=== PATIENT | female | born 1980 | race Caucasian/White ===

== ENCOUNTER 2016-11-21 15:07 | Inpatient (IN) | payer BC ==
[~2016-11-21] VITALS: Ht 167.6 cm; Wt 68.0 kg
[~2016-11-21 15:07] MED LIST: FISH OIL500 MG PO; IBUPROFEN800 MG PO; MOTRIN800 MG PO; PERCOCET 5/31 TABLET PO; VITAFOL GUMMIE1 EACH PO
[2016-11-21 15:21] VITALS: BP 118/65
[2016-11-21 18:28] VITALS: BP 113/60
[2016-11-21 19:22] VITALS: BP 109/62
[2016-11-22 07:34] VITALS: BP 98/54
[2016-11-22 11:54] LABS: EOSINOPHIL (%) 0 % (0-5); HEMATOCRIT 29.6 % (36.0-46.0); IMMATURE GRANULOCYTE (%) 0.7 % (0.0-0.7); IMMATURE GRANULOCYTE COUNT 0.1 K/uL; INSTRUMENT ABS NEUTROPHIL CT 10.3 K/uL; LYMPHOCYTE COUNT 1.1 K/uL (1.0-2.8); MCH 29.7 PG (29.0-34.0); MCHC 33.8 G/DL (30.0-36.0); MCV 87.8 FL (83-99); MEAN PLAT.VOLUME 11.1 uM^3 (9.5-12.4); MONOCYTE (%) 5.7 % (3-12); MONOCYTE COUNT 0.7 K/uL (0-0.8); NEUTROPHIL (%) 84.2 % (45-76); NEUTROPHIL COUNT 10.3 K/uL (1.8-6.4); PLATELET COUNT 175 K/uL (156-360); RBC DIS.WIDTH-CV 12.9 % (11.8-14.6); RBC DIS.WIDTH-SD 41.3 % (39-53); RED BLOOD COUNT 3.37 M/uL (3.80-5.20); WHITE BLOOD COUNT 12.2 K/uL (4.1-10.2)
[2016-11-22 12:29] LABS: GFR ESTIMATE (CALCULATED) > 59 mL/min/
[2016-11-22 15:10] VITALS: BP 96/55
[2016-11-22 19:58] VITALS: BP 100/59
[2016-11-22 23:30] VITALS: BP 84/49
[2016-11-22 23:31] VITALS: BP 96/53
[2016-11-23] VITALS (10 sets, daily range): BP systolic 99–115; BP diastolic 56–63
[2016-11-23 08:09] LABS: EOSINOPHIL (%) 0 % (0-5); HEMATOCRIT 27.5 % (36.0-46.0); IMMATURE GRANULOCYTE (%) 1.3 % (0.0-0.7); IMMATURE GRANULOCYTE COUNT 0.2 K/uL; MCH 29.9 PG (29.0-34.0); MCHC 33.8 G/DL (30.0-36.0); MCV 88.4 FL (83-99); MEAN PLAT.VOLUME 10.8 uM^3 (9.5-12.4); MONOCYTE (%) 4.8 % (3-12); MONOCYTE COUNT 0.6 K/uL (0-0.8); NEUTROPHIL (%) 85.3 % (45-76); PLATELET COUNT 144 K/uL (156-360); RBC DIS.WIDTH-SD 41.7 % (39-53); RED BLOOD COUNT 3.11 M/uL (3.80-5.20); WHITE BLOOD COUNT 11.7 K/uL (4.1-10.2)
[2016-11-23] MEDS ORDERED: ENDOCET 5-3251 EACH PO (11:33)
[2016-11-23] MEDS ORDERED: IBUPROFEN800 MG PO (11:33)
[2016-11-24 02:04] VITALS: BP 94/54
[2016-11-24 06:39] LABS: EOSINOPHIL (%) 0.1 % (0-5); HEMATOCRIT 22.7 % (36.0-46.0); IMMATURE GRANULOCYTE (%) 1.2 % (0.0-0.7); IMMATURE GRANULOCYTE COUNT 0.1 K/uL; INSTRUMENT ABS NEUTROPHIL CT 9.5 K/uL; LYMPHOCYTE COUNT 1.3 K/uL (1.0-2.8); MCH 29.3 PG (29.0-34.0); MCV 88.7 FL (83-99); MEAN PLAT.VOLUME 10.7 uM^3 (9.5-12.4); MONOCYTE (%) 7.1 % (3-12); MONOCYTE COUNT 0.8 K/uL (0-0.8); NEUTROPHIL (%) 80.5 % (45-76); NEUTROPHIL COUNT 9.5 K/uL (1.8-6.4); PLATELET COUNT 174 K/uL (156-360); RBC DIS.WIDTH-CV 12.9 % (11.8-14.6); RBC DIS.WIDTH-SD 42.1 % (39-53); RED BLOOD COUNT 2.56 M/uL (3.80-5.20); WHITE BLOOD COUNT 11.8 K/uL (4.1-10.2)
[2016-11-24 11:00] VITALS: BP 108/65
[2016-11-24 14:30] VITALS: BP 112/67
[2016-11-24 19:07] VITALS: BP 109/59
[2016-11-24 23:20] VITALS: BP 108/64
[2016-11-25 03:14] VITALS: BP 119/69
[2016-11-25 07:26] VITALS: BP 117/68
[2016-11-25] MEDS ORDERED: HYDROCODON-ACE1 EAC7 PO (08:16)
[2016-11-25] MEDS ORDERED: IRON325 MG PO (08:16)
[2016-11-25 14:24] VITALS: BP 117/67
[2016-11-25 23:11] VITALS: BP 116/68
[2016-11-26 07:57] VITALS: BP 120/66
== END 2016-11-26 11:39 | disposition home or self-care (01) | DRG 765 ==
LOC: LDRP-OP 15:07 → 2WEST 15:08 → LDRP-OP 01-21 11:58
PROVIDERS: Obstetrics & Gynecology; Obstetrics & Gynecology Gynecology
PROC: 10D00Z1 Extraction of Products of Conception, Low, Open Approach (ICD-10-PCS; principal; 2016-11-23)
DX: O41.03X1 Oligohydramnios, third trimester, fetus 1 (principal); D62 Acute posthemorrhagic anemia; O60.14X1 Preterm labor third trimester with preterm delivery third trimester, fetus 1; O32.1XX1 Maternal care for breech presentation, fetus 1; L40.50 Arthropathic psoriasis, unspecified; O99.02 Anemia complicating childbirth; O99.72 Diseases of the skin and subcutaneous tissue complicating childbirth; Z37.0 Single live birth; Z3A.35 35 weeks gestation of pregnancy; Z98.82 Breast implant status
CPT/HCPCS: 76818; 82565; 84450; 84460; 85025; 86900; 86901; 88307; G0378; J0690; J0702; J1100; J1170; J2250; J2274; J2405; J3010; J7120